=== PATIENT | female | born 1965 | race Caucasian/White ===

== ENCOUNTER → 2016-08-03 | Outpatient (CLI) | payer BC ==
[~2016-08-03] MED LIST: ESTR1PAT74 TD; IBUP200C62 PO; IOHEXOL 300 MG/ML 75ml INJECTION ONE; MIRT30TA PO; NORMAL SALINE 100 ML ONE; ONDA4TAB10 PO; PROM25TA7 PO; SALINE FLUSH 10ml SYRINGE ONE
--- NOTE | 2016-08-03 16:16 | DI ---
Indication: ITS.REASON: J02.9 CHRONIC SORE THROAT; F17.20 SMOKER PROCEDURE: CT NECK W/CONTRAST: Encounter: Initial Comparison: None Technique: Axial CT images were performed through the neck with intravenous contrast. Coronal and sagittal two-dimensional reformats Automated Exposure Control and Iterative Reconstruction dose reducing techniques were utilized. Contrast: Omnipaque 300 75 mL Findings: The lung apices are grossly clear. The thyroid gland appears normal. No mucosal based mass lesions appreciated. The parotid and submandibular glands appear normal. Parapharyngeal fat spaces are normal. Great vessels appear normal. No pathologically enlarged or enhancing adenopathy seen in the neck. Bone windows are unremarkable. Small mucous retention cyst in the left maxillary sinus. Mild ethmoid sinus disease. Impression: No acute abnormality seen. No adenopathy or mass. .
== END ==
LOC: IMA 15:27
PROVIDERS: ATTEND Family Medicine
DX: J02.9 Acute pharyngitis, unspecified (principal); Z87.891 Personal history of nicotine dependence
CPT/HCPCS: 70491; J7050; Q9967